=== PATIENT | male | born 1935 | race Caucasian/White ===

== ENCOUNTER 2017-10-30 14:48 | Emergency (ER) | payer MEDICARE, BC ==
[2017-10-30] MEDS: HYDROcodone/APAP 5/325MG 1 TAB TABLET PO (15:59)
[2017-10-30] MEDS: DIPHTH,PERTUSS(ACELL),TET TOX 0.5 ML DISP.SYRIN. VAX IM (16:00)
[2017-10-30] MEDS: GELATIN SPONGE SIZE 12-7MM SPONGE. TP (16:01)
== END 2017-10-30 16:30 | disposition home or self-care (01) ==
LOC: ER 14:48
DX: S51.812A Laceration without foreign body of left forearm, initial encounter (principal); E03.9 Hypothyroidism, unspecified; J44.9 Chronic obstructive pulmonary disease, unspecified; Z95.5 Presence of coronary angioplasty implant and graft; Z90.49 Acquired absence of other specified parts of digestive tract; Z87.442 Personal history of urinary calculi; Z88.0 Allergy status to penicillin; Z88.1 Allergy status to other antibiotic agents; Z91.041 Radiographic dye allergy status; W22.8XXA Striking against or struck by other objects, initial encounter; Y93.89 Activity, other specified; Y99.8 Other external cause status; Y92.89 Other specified places as the place of occurrence of the external cause
CPT/HCPCS: 73090; 90471; 90715; 99284-25

== ENCOUNTER 2017-11-05 18:37 | Emergency (ER) | payer MEDICARE, BC ==
[2017-11-05] MEDS: HYDROcodone/APAP 5/325MG 1 TAB TABLET PO (19:13)
[2017-11-05] MEDS: LIDOCAINE WITH 8.4% SOD BICARB 3 ML DISP.SYRIN. INJ ×2 (19:13→19:30)
== END 2017-11-05 20:38 | disposition home or self-care (01) ==
LOC: ER 18:37
DX: S69.82XA Other specified injuries of left wrist, hand and finger(s), initial encounter (principal); E03.9 Hypothyroidism, unspecified; J44.9 Chronic obstructive pulmonary disease, unspecified; Z87.442 Personal history of urinary calculi; Z95.1 Presence of aortocoronary bypass graft; Z90.49 Acquired absence of other specified parts of digestive tract; Z88.0 Allergy status to penicillin; Z88.1 Allergy status to other antibiotic agents; Z91.041 Radiographic dye allergy status; W26.8XXA Contact with other sharp object(s), not elsewhere classified, initial encounter; Y93.89 Activity, other specified; Y99.8 Other external cause status; Y92.89 Other specified places as the place of occurrence of the external cause
CPT/HCPCS: 12042; 99284-25

== ENCOUNTER 2019-09-10 07:03 | Day surgery (SDC) | payer MEDICARE, BC ==
[~2019-09-10] VITALS: Ht 175.3 cm; Wt 72.1 kg
[~2019-09-10 07:03] MED LIST: CARV25TA2 PO; CLINDAMYCIN 900MG PREMIX 50 ML IV PRN; CLOP75TA PO; DOXY100T PO; EZET10TA20 PO; HYDROmorphone 2 MG/ML VIAL IV PRN; IV RINGERS,LACTATED 1000ML 1,000 ML IV SCH; LIDOCAINE 1% PF 2 ML VIAL. ID PRN; MORPHINE SULFATE 2 MG/ML VIAL. IV PRN; ONDANSETRON PF 4 MG/2 ML VIAL. IV PRN; PANT40TA77 PO; PLAN450T PO; PROCHLORPERAZINE 10 MG/2 ML VIAL. IV PRN; RANO500T2 PO; fentaNYL PF VIAL 100 MCG/2 ML VIAL IV PRN
[2019-09-10] MEDS ORDERED: PROPOFOL 20 ML IV ONE (08:59)
[2019-09-10] MEDS ORDERED: LIDOCAINE 2% PF 5 ML VIAL. ONE (08:59)
[2019-09-10] MEDS ORDERED: MIDAZOLAM HCL/PF 2 MG/2 ML VIAL. ONE (09:00)
[2019-09-10] MEDS ORDERED: fentaNYL PF VIAL 100 MCG/2 ML VIAL ONE (09:00)
[2019-09-10] MEDS ORDERED: LIDOCAINE 1% 20 ML VIAL. ONE (10:13)
[2019-09-10] MEDS ORDERED: HYDROcodone/APAP 5/325MG 1 TAB TABLET ONE (11:29)
[2019-09-10] MEDS: fentaNYL PF VIAL 100 MCG/2 ML VIAL IV PRN ×2 (11:30→11:40)
[2019-09-10] MEDS ORDERED: HYDROcodone/APAP 5/325MG 1 TAB TABLET PO ONE (11:30)
[2019-09-10] MEDS ORDERED: TRAM50TA PO (12:01)
--- NOTE | 2019-09-10 12:03 | DISCH ---
DISCHARGE INSTRUCTIONS Condition on Discharge Condition on Discharge: Stable Activity After Discharge Activity Instructions for Disc: Other, see below (no hard grasping with left hand for 3 weeks, may use for fine motor use without restriction grasping silverware typing writing etc) Diet after Discharge Diet after Discharge: Regular Wound Incision Care Wound/Incision Care: Change dressing (May remove dressing in 3 days may then shower no soaking until sutures removed, suggest replacing with Band-Aid or light covering) Contacting the after DC Call your doctor for: Concerns you may have Follow-Up Follow up with: Dr. Cowart 10 days ILYA COWART MD Sep 10, 2019 12:03
--- NOTE | 2019-09-10 13:15 | PDOC4 ---
Operative Note Operative Note Date of surgery: 09/10/2019 Preoperative diagnosis: Left ring trigger finger Postoperative diagnosis: Same Operative procedure: Left ring trigger finger release Surgeon: Sofya Assist: Carlos martínez Anesthesia: Mac with sedation plus local Estimated blood loss: 2 mL Complications: None Operative indications: Please see my preoperative clinic note for detailed operative indications and note that patient has had painful triggering of the left ring finger unresponsive to nonoperative management that is painful and limiting to his daily activities. We had previously discussed additional observation possibility of an injection versus surgical release and we covered the possibility of infection nerve or blood vessel damage continued pain scarring medical or other anesthetic competitions among others he wishes to proceed with surgical evaluation and treatment. Operative text: Patient was identified procedure verified patient placed in the supine position on the operating table. After the left upper extremity was prepped and draped in standard sterile fashion and adequate light sedation was given local anesthetic was placed throughout the incision site and a transverse incision was made at the distal palmar crease overlying the fourth finger flexor tendon sheath dissection carried out down to the tendon sheath neurovascular bundles were protected both medially and laterally and the tendon sheath was incised longitudinally and the A1 mercy was released sharply with tenotomy scissors and triggering was noted to be eliminated flexor profundus and superficialis were otherwise noted to be intact thorough irrigation carried out with normal saline solution bleeding points controlled by electrocautery and closure accomplished with nylon suture in a vertical mattress fashion sterile dressings were applied patient was returned recovery room in stable condition having tolerated procedure well. Carlos martínez was present for the procedure assisted in the positioning prepping draping skin closure and dressing placement ILYA SETHI MD Sep 10, 2019 13:15
[2019-09-10 13:30] VITALS: BP 150/76
[2019-09-10] MEDS ORDERED: traMADol 50 MG TABLET PO ONE (13:45)
== END 2019-09-10 14:01 | disposition home or self-care (01) ==
LOC: SURG 07:03
PROVIDERS: ATTEND Orthopaedic Surgery
DX: M65.342 Trigger finger, left ring finger (principal); Z88.0 Allergy status to penicillin; Z88.8 Allergy status to other drugs, medicaments and biological substances; Z91.041 Radiographic dye allergy status; Z79.899 Other long term (current) drug therapy
CPT/HCPCS: 26055; J2001; J2250; J2405; J2704; J3010; J3490